=== PATIENT | male | born 1995 ===

== ENCOUNTER 2018-12-07 03:17 | Emergency (ER) | payer MEDICAID ==
[2018-12-07] MEDS ORDERED: LORazepam 2 MG/ML SDV IM ONE (03:28)
--- NOTE | 2018-12-07 03:34 | EDM.PDOCBH ---
ED HPI GENERAL MEDICAL PROBLEM - General Stated Complaint: ANXIETY Time Seen by Provider: 12/07/18 03:30 Source of Information: Reports: Patient History Limitations: Reports: No Limitations - History of Present Illness INITIAL COMMENTS - FREE TEXT/NARRATIVE: 23 you complaining of feeling anxious. He claims to feel "all the symptoms on the that paper." The paper in question is the side effect profile of Paxil. These constellation of symptoms,nausea,trembling,shortness of breath, generalized numbness and tingling,started about an hour ago. He started the medicine yesterday. Denies chest pain,fever or chills. Additionally,he admits he had a few beers tonight,. He is accompanied by his friend - Related Data Allergies Allergy/AdvReac Type Severity Reaction Status Date / Time No Known Allergies Allergy Verified 12/07/18 04:34 Home Meds: Home Meds PARoxetine HCl [Paxil] 20 mg PO BID 12/07/18 [History] ED ROS GENERAL - Review of Systems Review Of Systems: ROS reveals no pertinent complaints other than HPI. ED EXAM, BEHAVIORAL HEALTH - Physical Exam Exam: See Below Exam Limited By: No Limitations General Appearance: Alert, Anxious Ears: Normal External Exam Throat/Mouth: Normal Inspection Neck: Normal Inspection Respiratory/Chest: No Respiratory Distress, Lungs Clear Cardiovascular: Normal Peripheral Pulses, Regular Rate, Rhythm, No Edema Neurological: Alert, Normal Mood/Affect, CN II-XII Intact Psychiatric: Alert, Normal Cognition, Restless, Inattentive, Poor Eye Contact, Tangential Thoughts, Other (Anxious). No: Suicidal Thoughts, Visual Hallucinations COURSE, BEHAVIORAL HEALTH COMP - Course Vital Signs: Last Vital Signs Temp 98.5 F 12/07/18 03:17 Pulse 102 H 12/07/18 03:17 Resp 17 12/07/18 03:17 BP 132/85 12/07/18 03:17 Pulse Ox 100 12/07/18 03:17 Orders, Labs, Meds: Medications Discontinued Medications Generic Name Dose Route Start Last Admin Trade Name Freq PRN Reason Stop Dose Admin Lorazepam 0.5 mg 12/07/18 03:28 12/07/18 03:31 Ativan IM 12/07/18 03:29 0.5 mg ONETIME ONE Administration Departure - Departure Time of Disposition: 03:34 Disposition: Home, Self-Care 01 Condition: Good Clinical Impression: Anxiety - Discharge Information Instructions: Generalized Anxiety Disorder, Adult Referrals: PCP,None [Primary Care Provider] - Forms: ED Department Discharge Additional Instructions: follow up with your primary care today. - Problem List & Annotations (1) Anxiety SNOMED Code(s): 35918024 Code(s): F41.9 - ANXIETY DISORDER, UNSPECIFIED Status: Acute (2) Alcohol intoxication SNOMED Code(s): 53618240 Code(s): F10.929 - ALCOHOL USE, UNSPECIFIED WITH INTOXICATION, UNSPECIFIED Status: Acute Qualifiers: Complication of substance-induced condition: with unspecified complication Qualified Code(s): F10.929 - Alcohol use, unspecified with intoxication, unspecified - Problem List Review Problem List Initiated/Reviewed/Updated: Yes - Assessment/Plan Plan: KIANNA Novak. I gave him Lorazepam 0.5 mg IM.Patient had one episode of vomiting in the ED. After he was discharged,he turned around and came back,wanting to stay longer because he id not feel right. He seemed really anxious. I offered him IVF ,CMP,CBC,Drug screen and ETOH level ;level.He declined and left in the company of his friends.
== END 2018-12-07 04:13 | disposition home or self-care (01) ==
LOC: FB.ED 03:17
DX: F41.9 Anxiety disorder, unspecified (principal); Z79.899 Other long term (current) drug therapy
CPT/HCPCS: 96372; 99283; J2060